=== PATIENT | female | born 2000 | race Two or more races ===

== ENCOUNTER 2025-03-21 14:43 | Emergency (ER) | payer MEDICAID, SELFPAY ==
[2025-03-21 14:56] VITALS: PULSE 90; RESP 16; O2SAT 98
--- NOTE | 2025-03-21 15:15 | PC.NURSE ---
called for pt from lobby/outside, no [id number]
--- NOTE | 2025-03-21 15:23 | PC.NURSE ---
no answer x2 when called to e
[2025-03-21 15:25] VITALS: BMI 31.6
--- NOTE | 2025-03-21 16:17 | PC.NURSE ---
called for pt from lobby/outside, no [id number]@ [id number]
== END 2025-03-21 17:07 | disposition left against medical advice (07) ==
PROVIDERS: Emergency Provider Family Medicine
DX: Z53.21 Procedure and treatment not carried out due to patient leaving prior to being seen by health care provider (principal)
CPT/HCPCS: 99281